=== PATIENT | female | born 2000 | race Caucasian/White ===

== ENCOUNTER 2020-09-10 11:51 | Emergency (ER) | payer OTHER ==
[~2020-09-10] VITALS: Ht 172.7 cm; Wt 70.4 kg
[2020-09-10] MEDS ORDERED: SODIUM CHLORIDE FLUSH 10ML SYR IVF ONE (12:30)
[2020-09-10 13:18] LABS: BASOPHILS % (AUTO) 1 % (0-1); EOSINOPHILS % (AUTO) 2 % (1-7); LYMPHOCYTES % (AUTO) 36 % (22-44); MEAN CORPUSCULAR HEMOGLOBIN 30.8 pg (27.0-34.8); MEAN CORPUSCULAR HGB CONC 34.7 g/dL (32.4-35.8); MEAN PLATELET VOLUME 8.1 fL (7.4-10.4); MONOCYTES % (AUTO) 13 % (2-9); NEUTROPHILS % (AUTO) 49 % (42-75); PLATELET COUNT 300 x10^3/uL (130-400); RED BLOOD COUNT 4.52 x10^6/uL (3.82-5.3); RED CELL DISTRIBUTION WIDTH 12.3 % (9.6-15.2)
[2020-09-10 13:19] LABS: ALBUMIN 3.7 g/dL (3.4-5.0); ANION GAP 5 mmol/L (5-15); CALCIUM 9.4 mg/dL (8.5-10.1); CHLORIDE 108 mmol/L (98-107); MD NO
[2020-09-10 13:26] LABS: ALANINE AMINOTRANSFERASE 26 U/L (12-78); ALKALINE PHOSPHATASE 50 U/L (45-117); BILIRUBIN,TOTAL 0.5 mg/dL (0.2-1.0); CREATININE 0.71 mg/dL (0.55-1.02); TOTAL PROTEIN 7.7 g/dL (6.4-8.2)
--- NOTE | 2020-09-10 16:17 | NUR ---
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
--- NOTE | 2020-09-10 16:55 | NUR ---
PT TRANSPORTED TO CT.
[2020-09-10] MEDS ORDERED: OMNIPAQUE 350 MG/ML, 100ML BOTTLE ONE (17:07)
[2020-09-10 17:57] LABS: MICROSCOPIC INDICATED
--- NOTE | 2020-09-10 18:23 | NUR ---
BREAK RN FOR PRIMARY RN BERNARD. RECEIVED REPORT AT THIS TIME. PT RESTING IN POSITION OF COMFORT. DENIES ANY PAIN AND NEED TO USE RESTROOM. AWAITING RECHECK FROM ERP. CALL LIGHT IN REACH. FALL PRECAUTIONS IN PLACE. VSS.
--- NOTE | 2020-09-10 18:39 | NUR ---
BREAK DENZEL. TATA MEYERS AT BEDSIDE FOR RECHECK
--- NOTE | 2020-09-10 18:50 | NUR ---
AWAITING CHART/DC PAPERS FROM ERP FOR DC
[2020-09-10 19:10] VITALS: BP 120/73
== END 2020-09-10 19:18 | disposition home or self-care (01) ==
LOC: ED 16:48
DX: R10.31 Right lower quadrant pain (principal); R19.7 Diarrhea, unspecified; R11.0 Nausea
CPT/HCPCS: 36415; 74177; 80053; 81001; 84703; 85025; 99285; Q9967